=== PATIENT | female | born 1990 | race Caucasian/White ===

== ENCOUNTER 2023-09-05 03:25 | Emergency (ER) | payer OTHER ==
[~2023-09-05] VITALS: Ht 162.6 cm; Wt 81.6 kg
[2023-09-05 03:39] VITALS: BP 110/79; PULSE 109; RESP 18; TEMP 97.1; O2SAT 99
[2023-09-05] MEDS ORDERED: BACI-418 TP (04:34)
[2023-09-05] MEDS ORDERED: ACET-10509 PO (04:35)
[2023-09-05] MEDS ORDERED: BACITRACIN OINT 500 UNITS/GM PKT TP ONE (04:35)
== END 2023-09-05 04:48 | disposition home or self-care (01) ==
LOC: MED 03:25
DX: S63.591A Other specified sprain of right wrist, initial encounter (principal); M79.661 Pain in right lower leg; V49.88XA Car occupant (driver) (passenger) injured in other specified transport accidents, initial encounter; Y93.89 Activity, other specified; Y92.89 Other specified places as the place of occurrence of the external cause; Y99.8 Other external cause status
CPT/HCPCS: 29125; 73110; 73590; 99284; Q0092